=== PATIENT | male | born 1935 | race Caucasian/White ===

== ENCOUNTER 2020-05-30 06:08 | Inpatient (IN) | payer MEDICARE ==
[~2020-05-30] VITALS: Ht 170.2 cm; Wt 70.0 kg
--- NOTE | 2020-05-30 06:18 | NUR ---
MEDICAL CAREGIVER STATES THAT HE STARTED BLEEDING ON TUESDAY. DR CHENG PLACED PACEMAKER
[2020-05-30 07:02] LABS: BASOPHILS % (AUTO) 0.7 % (0-1); EOSINOPHILS # (AUTO) 0.1 X10'3 (0-0.9); EOSINOPHILS % (AUTO) 1.8 % (0-6); HEMATOCRIT 34.2 % (42.0-52.0); HEMOGLOBIN 11.8 g/dl (14.0-17.9); LYMPHOCYTES # (AUTO) 1.2 X10'3 (1.1-4.8); LYMPHOCYTES % (AUTO) 40.8 % (21-51); MEAN CORPUSCULAR HEMOGLOBIN 28.9 PG (27.0-31.0); MEAN CORPUSCULAR HGB CONC 34.5 g/dL (33.0-36.5); MEAN CORPUSCULAR VOLUME 83.9 FL (78-98); MEAN PLATELET VOLUME 7.5 FL (7.4-10.4); MONOCYTES # (AUTO) 0.3 X10'3 (0-0.9); MONOCYTES % (AUTO) 11.3 % (2-12); NEUTROPHILS # (AUTO) 1.3 X10'3 (1.8-7.7); NEUTROPHILS % (AUTO) 45.4 % (42-75); PLATELET COUNT 192 X10'3 (140-440); RED BLOOD COUNT 4.08 X10'6 (4.70-6.10); RED CELL DISTRIBUTION WIDTH 14.5 % (11.5-14.5); WHITE BLOOD COUNT 2.9 X10'3 (4.5-11.0)
[2020-05-30 07:13] LABS: PARTIAL THROMBOPLASTIN TIME 45 SECONDS (22-32)
[2020-05-30 07:18] LABS: ALANINE AMINOTRANSFERASE 12 U/L (12-78); ALBUMIN 3.4 G/DL (3.4-5.0); ALBUMIN/GLOBULIN RATIO 0.9 (1.1-1.5); ALKALINE PHOSPHATASE 94 IU/L (46-116); ANION GAP 9 (8-16); ASPARTATE AMINO TRANSFERASE 6 U/L (10-37); BILIRUBIN,TOTAL 0.7 MG/DL (0.1-1.0); BLOOD UREA NITROGEN 25 MG/DL (7-18); BUN/CREATININE RATIO 18.1 (5.4-32.0); CALCIUM 9.1 MG/DL (8.5-10.1); CHLORIDE 108 MMOL/L (99-107); CREATININE 1.38 MG/DL (0.60-1.10); GLUCOSE 92 MG/DL (70-104); POTASSIUM 5.2 MMOL/L (3.5-5.1); SODIUM 138 MMOL/L (135-145); TOTAL CARBON DIOXIDE 21.3 MMOL/L (24-32); TOTAL PROTEIN 7.2 G/DL (6.4-8.2); eGFR 49 ML/MIN
[2020-05-30 07:59] LABS: TOTAL CELLS COUNTED 100
[2020-05-30 08:28] LABS: PLATELET ESTIMATE NORMAL
--- NOTE | 2020-05-30 10:40 | NUR ---
DR CHENG IN ROOM CLEANING SITE WITH IODINE AND 4X4 GAUZE. DR CHENG WILL PLACE A 4X4 GAUZE AND TEGADERM TO LEFT UPPER CHEST PACEMAKER SITE
--- NOTE | 2020-05-30 10:49 | NUR ---
PER DR CHENG WHO SPOKE TO DR MERCEDES: 1. PATIENT WILL HOLD COUMADIN STARTING TODAY 2. DR MERCEDES WILL ORDER HOME HEALTH 3. PATIENT WILL COME BACK TUESDAY AM TO HAVE HIS PACEMEAKER POCKET REVISED PER DR CHENG: OK TO DISCHARGE HOME
--- NOTE | 2020-05-30 11:27 | NUR ---
REFERRAL HOME HEALTH FORM FILLED OUT AND FAXED TO [facility] WITH THE ASSISTANCE OF MD MERCEDES
[2020-05-30] MEDS ORDERED: SERT-433 PO (13:16)
[2020-05-30] MEDS ORDERED: LEVO125T8 PO (13:16)
[2020-05-30] MEDS ORDERED: WARF2.5T82 PO (13:16)
[2020-05-30] MEDS ORDERED: CARV25TA2 PO (13:16)
[2020-05-30] MEDS ORDERED: magnesium 4gm in 100ml NS 100 ML IV PRN (13:55)
[2020-05-30] MEDS ORDERED: magnesium 2GM in 50ml NS 50 ML IV PRN (13:55)
[2020-05-30] MEDS ORDERED: ondansetron/PF 4mg/2ml inj IV PRN (13:55)
[2020-05-30] MEDS ORDERED: magnesium Cl slow-release 64mg tablet PO PRN (13:55)
[2020-05-30] MEDS ORDERED: morphine 2 MG/ML inj. syringe IV PRN (13:55)
[2020-05-30] MEDS ORDERED: acetaminophen 325mg tablet PO PRN ×2 (13:55)
[2020-05-30] MEDS ORDERED: potassium Cl 40MEQ/1/2NS 520ml 520 ML IV PRN ×2 (13:55)
[2020-05-30] MEDS ORDERED: potassium Cl 20 mEq SR tablet PO PRN ×2 (13:55)
--- NOTE | 2020-05-30 16:18 | NUR ---
REPOSITIONED PT IN BED. NEW BLOOD NOTED ON PT'S PACEMAKER DRESSING. DR FLAKO WEI.
--- NOTE | 2020-05-30 16:19 | NUR ---
DR ARRIOLA PREQUESTS DR. CHENG BE CONSULTED ON PT'S BLEEDING SITE.
--- NOTE | 2020-05-30 16:23 | NUR ---
Dr. Norman notified. States this is an expected occurance, and he is not concerned at this time. Will continue to monitor.
[2020-05-30 18:00] VITALS: BP 196/80
--- NOTE | 2020-05-30 18:30 | NUR ---
Patient in room MED 312. I have received report from ER nurse and had the opportunity to ask questions and assume patient care. Patient is to wear same dressing over pacemaker
[2020-05-30] MEDS: docusate sod 100mg capsule PO SCH (19:55)
[2020-05-30] MEDS: K and/or MAG REPLACEMENT MC SCH (20:00)
[2020-05-30 22:00] VITALS: BP 125/60
--- NOTE | 2020-05-30 23:43 | NUR ---
Patient strikethrough on left pacemaker site is is 75 percent. at 1800 strikethrough was 50%. Patient denies c/o pain or any symptoms. RN will continue to monitor.
[2020-05-31] MEDS: HYDROcodone/acetaminophen 5mg/325mg tablet PO PRN ×2 (00:47→08:15)
--- NOTE | 2020-05-31 00:49 | NUR ---
patient given norco for pain. no new s.s of complications in his dressing. site has not increased in size, or bleeding. RN encouraged patient to not turn on the site or raise arms to aggravate the site. patient aware and understands.
[2020-05-31 02:00] VITALS: BP 132/65
--- NOTE | 2020-05-31 03:26 | NUR ---
assessed pacemaker site and hematoma at site has not grown. Additionally, patient is not complaining of any pain or s.s. patient is resting comfortably and sleeping
[2020-05-31 06:00] VITALS: BP 135/70
[2020-05-31 06:17] LABS: BASOPHILS % (AUTO) 0.7 % (0-1); EOSINOPHILS # (AUTO) 0.1 X10'3 (0-0.9); EOSINOPHILS % (AUTO) 2.2 % (0-6); HEMATOCRIT 35.5 % (42.0-52.0); HEMOGLOBIN 12.2 g/dl (14.0-17.9); LYMPHOCYTES # (AUTO) 1.2 X10'3 (1.1-4.8); LYMPHOCYTES % (AUTO) 38.8 % (21-51); MEAN CORPUSCULAR HEMOGLOBIN 28.9 PG (27.0-31.0); MEAN CORPUSCULAR HGB CONC 34.4 g/dL (33.0-36.5); MEAN PLATELET VOLUME 7.5 FL (7.4-10.4); MONOCYTES # (AUTO) 0.4 X10'3 (0-0.9); MONOCYTES % (AUTO) 12.4 % (2-12); NEUTROPHILS # (AUTO) 1.4 X10'3 (1.8-7.7); NEUTROPHILS % (AUTO) 45.9 % (42-75); PLATELET COUNT 191 X10'3 (140-440); RED BLOOD COUNT 4.22 X10'6 (4.70-6.10); RED CELL DISTRIBUTION WIDTH 14.9 % (11.5-14.5)
--- NOTE | 2020-05-31 06:19 | NUR ---
Problems reprioritized. Patient report given, questions answered & plan of care reviewed with Jimi TELLEZ.
[2020-05-31 06:31] LABS: ALBUMIN 3.3 G/DL (3.4-5.0); ANION GAP 11 (8-16); BLOOD UREA NITROGEN 27 MG/DL (7-18); BUN/CREATININE RATIO 20.1 (5.4-32.0); CALCIUM 8.8 MG/DL (8.5-10.1); CHLORIDE 108 MMOL/L (99-107); CREATININE 1.34 MG/DL (0.60-1.10); GLUCOSE 95 MG/DL (70-104); MAGNESIUM 1.8 MG/DL (1.5-2.4); POTASSIUM 4.9 MMOL/L (3.5-5.1); SODIUM 140 MMOL/L (135-145); TOTAL CARBON DIOXIDE 21.1 MMOL/L (24-32); eGFR 51 ML/MIN
[2020-05-31 06:48] LABS: ANISOCYTOSIS 1+; MICROCYTOSIS 1+; PLATELET ESTIMATE NORMAL; TOTAL CELLS COUNTED 100
[2020-05-31] MEDS: docusate sod 100mg capsule PO SCH ×2 (07:56→19:14)
--- NOTE | 2020-05-31 08:36 | NUR ---
PAGER ID: [phone] MESSAGE: Felipe Chavira, 312, hematoma over pacemaker patient home meds reviewed, is asking if we can restart his coreg, levothyroxine, and Zoloft.
[2020-05-31] MEDS: carVEDilol 12.5mg tablet PO SCH ×2 (10:18→19:29)
[2020-05-31] MEDS: sertraline 50mg tablet PO SCH (10:18)
--- NOTE | 2020-05-31 10:25 | NUR ---
PAGER ID: [phone] MESSAGE: Felipe Bonds, 312, hematoma over pacemaker Dietary is asking if we can change his diet to restrict potassium (difficulty excreting it), and restrict Vitamin K in diet.
[2020-05-31 11:00] VITALS: BP 95/38
[2020-05-31 15:00] VITALS: BP 95/56
[2020-05-31 18:00] VITALS: BP 144/73
--- NOTE | 2020-05-31 18:19 | NUR ---
Carolyne Avalos given SBAR report, EMAR reviewed, Questions answered, plan of care reviewed.
--- NOTE | 2020-05-31 18:36 | NUR ---
Patient in room MED 312. I have received report from Jimi TELLEZ and had the opportunity to ask questions and assume patient care.
[2020-05-31] MEDS: K and/or MAG REPLACEMENT MC SCH (19:30)
[2020-05-31 22:00] VITALS: BP 137/66
--- NOTE | 2020-06-01 01:15 | NUR ---
Spoke to Dr. Riley regarding patient dressing site over pacemaker. RN went into patient room and noticed blood on patient pillow. The breakdown of the hematoma was oozing through the Tegaderm dressing site. MD said to reinforce to dressing. The patient INR is 3.8 and the wbc was 3.0. Rn is to clean surrounding site with iodine and hen reinforce with sterile gauze and a 4x4 gauze. no other orders
[2020-06-01 02:00] VITALS: BP 127/65
--- NOTE | 2020-06-01 02:00 | NUR ---
MD Riley called to come evaluate patients PPM hematoma site due to the dressing being saturated with blood. He examined the site and advised to just reinforce the dressing instead of changing it. He stated he believes it is old blood.
[2020-06-01 06:00] VITALS: BP 123/62
--- NOTE | 2020-06-01 06:21 | NUR ---
Problems reprioritized. Patient report given, questions answered & plan of care reviewed with Angelika TELLEZ.
[2020-06-01 06:27] LABS: HEMOGLOBIN 11.4 g/dl (14.0-17.9); MEAN PLATELET VOLUME 7.7 FL (7.4-10.4); MONOCYTES # (AUTO) 0.3 X10'3 (0-0.9)
[2020-06-01 06:29] LABS: ALBUMIN 3.2 G/DL (3.4-5.0); ANION GAP 8 (8-16); BLOOD UREA NITROGEN 28 MG/DL (7-18); BUN/CREATININE RATIO 20.4 (5.4-32.0); CALCIUM 8.7 MG/DL (8.5-10.1); CHLORIDE 107 MMOL/L (99-107); CREATININE 1.37 MG/DL (0.60-1.10); GLUCOSE 103 MG/DL (70-104); MAGNESIUM 1.8 MG/DL (1.5-2.4); POTASSIUM 4.8 MMOL/L (3.5-5.1); SODIUM 137 MMOL/L (135-145); TOTAL CARBON DIOXIDE 22.4 MMOL/L (24-32); eGFR 50 ML/MIN
[2020-06-01 06:31] LABS: BASOPHILS % (AUTO) 0.4 % (0-1); EOSINOPHILS % (AUTO) 1.6 % (0-6); LYMPHOCYTES # (AUTO) 1.2 X10'3 (1.1-4.8); LYMPHOCYTES % (AUTO) 38.6 % (21-51); MEAN CORPUSCULAR HEMOGLOBIN 28.9 PG (27.0-31.0); MEAN CORPUSCULAR HGB CONC 34.6 g/dL (33.0-36.5); MEAN CORPUSCULAR VOLUME 83.5 FL (78-98); MONOCYTES % (AUTO) 10.9 % (2-12); NEUTROPHILS # (AUTO) 1.5 X10'3 (1.8-7.7); NEUTROPHILS % (AUTO) 48.5 % (42-75); PLATELET COUNT 182 X10'3 (140-440); RED BLOOD COUNT 3.95 X10'6 (4.70-6.10); RED CELL DISTRIBUTION WIDTH 14.8 % (11.5-14.5)
[2020-06-01] MEDS: K and/or MAG REPLACEMENT MC SCH ×2 (08:00→20:00)
[2020-06-01] MEDS: sertraline 50mg tablet PO SCH (10:55)
[2020-06-01] MEDS: carVEDilol 12.5mg tablet PO SCH ×2 (10:55→21:28)
[2020-06-01] MEDS: levoTHYROXINE 125mcg tablet PO SCH (10:55)
[2020-06-01] MEDS: docusate sod 100mg capsule PO SCH ×2 (10:55→20:00)
[2020-06-01 11:00] VITALS: BP 119/64
[2020-06-01] MEDS ORDERED: phytonadione inj. 1 MG in normal saline 100ml IV soln 100 ML IV ONE (11:15)
[2020-06-01 15:00] VITALS: BP 141/73
--- NOTE | 2020-06-01 18:30 | NUR ---
Patient in room MED 312. I have received report from OSMIN and had the opportunity to ask questions and assume patient care. ASSUMED CARE OF PT WITH RN STUDENT DENNISE Perdue AT THE BEDSIDE.
[2020-06-01 19:00] VITALS: BP 100/53
[2020-06-01 20:30] VITALS: BP 132/55
--- NOTE | 2020-06-02 03:00 | NUR ---
Student documentation: I have reviewed and agree with all interventions, assessments performed and documented by DENNISE .Student Medication Administration: For this medication-pass time frame, all medication were reviewed, dispensed, administered and documented per hospital policy by DENNISE.
[2020-06-02 03:02] VITALS: BP 97/49
--- NOTE | 2020-06-02 06:29 | NUR ---
Problems reprioritized. Patient report given, questions answered & plan of care reviewed with ROJELIO.
[2020-06-02 06:39] VITALS: BP 114/62
[2020-06-02 07:05] LABS: BASOPHILS % (AUTO) 0.6 % (0-1); EOSINOPHILS # (AUTO) 0.1 X10'3 (0-0.9); EOSINOPHILS % (AUTO) 1.9 % (0-6); HEMATOCRIT 33.7 % (42.0-52.0); HEMOGLOBIN 11.5 g/dl (14.0-17.9); LYMPHOCYTES # (AUTO) 1.3 X10'3 (1.1-4.8); MEAN CORPUSCULAR HEMOGLOBIN 28.8 PG (27.0-31.0); MEAN CORPUSCULAR VOLUME 84.7 FL (78-98); MONOCYTES # (AUTO) 0.4 X10'3 (0-0.9); NEUTROPHILS # (AUTO) 1.4 X10'3 (1.8-7.7); NEUTROPHILS % (AUTO) 45.5 % (42-75); PLATELET COUNT 178 X10'3 (140-440); RED BLOOD COUNT 3.98 X10'6 (4.70-6.10); RED CELL DISTRIBUTION WIDTH 14.6 % (11.5-14.5); WHITE BLOOD COUNT 3.2 X10'3 (4.5-11.0)
[2020-06-02 07:44] LABS: ALBUMIN 3.1 G/DL (3.4-5.0); ANION GAP 9 (8-16); BLOOD UREA NITROGEN 26 MG/DL (7-18); BUN/CREATININE RATIO 19.4 (5.4-32.0); CALCIUM 8.5 MG/DL (8.5-10.1); CHLORIDE 107 MMOL/L (99-107); CREATININE 1.34 MG/DL (0.60-1.10); GLUCOSE 96 MG/DL (70-104); MAGNESIUM 1.7 MG/DL (1.5-2.4); POTASSIUM 4.9 MMOL/L (3.5-5.1); SODIUM 138 MMOL/L (135-145); TOTAL CARBON DIOXIDE 22.3 MMOL/L (24-32); eGFR 51 ML/MIN
[2020-06-02] MEDS: K and/or MAG REPLACEMENT MC SCH ×2 (08:00→20:00)
[2020-06-02] MEDS ORDERED: LIDOcaine 1% W/epiNEPHrine 1:100,000 20ml vial ONE (09:05)
[2020-06-02] MEDS ORDERED: ceFAZolin 1000mg inj ONE (09:05)
[2020-06-02] MEDS ORDERED: fentaNYL/PF 50MCG/1 ML 2ML syringe ONE (09:05)
[2020-06-02] MEDS ORDERED: midazolam 1 mg/ML 2ml injection ONE ×2 (09:05→10:27)
[2020-06-02] MEDS ORDERED: vancomycin 1,000mg inj ONE (09:43)
[2020-06-02] MEDS ORDERED: Thrombin (Bovine) 5,000 unit vial TP ONE (10:19)
[2020-06-02] MEDS ORDERED: gelatin sponge, absorbable (Gelfoam 100) sponge TP ONE (10:21)
[2020-06-02] MEDS ORDERED: ceFAZolin 2gm in dextrose, iso 50 ML IV ONE (10:26)
[2020-06-02 12:03] VITALS: BP 113/60
[2020-06-02] MEDS: sertraline 50mg tablet PO SCH (13:07)
[2020-06-02] MEDS: docusate sod 100mg capsule PO SCH ×2 (13:07→21:21)
[2020-06-02] MEDS: carVEDilol 12.5mg tablet PO SCH ×2 (13:07→21:21)
[2020-06-02] MEDS: levoTHYROXINE 125mcg tablet PO SCH ×2 (13:07→21:21)
[2020-06-02 16:07] VITALS: BP 124/55
[2020-06-02 22:00] VITALS: BP 109/50
[2020-06-03] VITALS (9 sets, daily range): BP systolic 95–171; BP diastolic 36–85
--- NOTE | 2020-06-03 05:40 | NUR ---
patient is a post CVA with hemiparesis, no acute events overnight, at bedside, his output and input has been document.
--- NOTE | 2020-06-03 07:10 | NUR ---
Patient in room MED 312. I have received report from Mode TELLEZ and had the opportunity to ask questions and assume patient care.
[2020-06-03 07:27] LABS: BASOPHILS % (AUTO) 0.4 % (0-1); EOSINOPHILS % (AUTO) 1.5 % (0-6); HEMATOCRIT 32.8 % (42.0-52.0); HEMOGLOBIN 11.3 g/dl (14.0-17.9); LYMPHOCYTES # (AUTO) 1.1 X10'3 (1.1-4.8); LYMPHOCYTES % (AUTO) 37.8 % (21-51); MEAN CORPUSCULAR HGB CONC 34.3 g/dL (33.0-36.5); MEAN CORPUSCULAR VOLUME 84.3 FL (78-98); MEAN PLATELET VOLUME 7.9 FL (7.4-10.4); MONOCYTES # (AUTO) 0.3 X10'3 (0-0.9); MONOCYTES % (AUTO) 11.6 % (2-12); NEUTROPHILS # (AUTO) 1.4 X10'3 (1.8-7.7); NEUTROPHILS % (AUTO) 48.7 % (42-75); PLATELET COUNT 171 X10'3 (140-440); RED BLOOD COUNT 3.89 X10'6 (4.70-6.10); RED CELL DISTRIBUTION WIDTH 14.8 % (11.5-14.5); WHITE BLOOD COUNT 2.9 X10'3 (4.5-11.0)
[2020-06-03] MEDS: K and/or MAG REPLACEMENT MC SCH ×2 (08:00→19:05)
[2020-06-03 08:12] LABS: ALBUMIN 3.1 G/DL (3.4-5.0); ANION GAP 8 (8-16); BLOOD UREA NITROGEN 27 MG/DL (7-18); BUN/CREATININE RATIO 20.5 (5.4-32.0); CALCIUM 8.7 MG/DL (8.5-10.1); CHLORIDE 107 MMOL/L (99-107); CREATININE 1.32 MG/DL (0.60-1.10); GLUCOSE 95 MG/DL (70-104); MAGNESIUM 1.8 MG/DL (1.5-2.4); POTASSIUM 4.9 MMOL/L (3.5-5.1); SODIUM 137 MMOL/L (135-145); TOTAL CARBON DIOXIDE 22.5 MMOL/L (24-32); eGFR 52 ML/MIN
[2020-06-03] MEDS: docusate sod 100mg capsule PO SCH ×2 (08:41→19:47)
[2020-06-03] MEDS: sertraline 50mg tablet PO SCH (08:41)
[2020-06-03] MEDS: clindamycin 600mg/D5W 50ml 50 ML IV SCH ×2 (08:41→17:47)
[2020-06-03] MEDS: carVEDilol 12.5mg tablet PO SCH ×2 (08:41→19:50)
[2020-06-03 09:25] LABS: TOTAL CELLS COUNTED 100
[2020-06-03 09:31] LABS: PLATELET ESTIMATE NORMAL
--- NOTE | 2020-06-03 11:10 | NUR ---
Initial: Pt admit for hematoma at pacemaker site, s/p evacuation of hematoma 05/05. Pt with CKD III per MD note, on a renal diet documented with average 75% PO intake meeting estimated nutrient needs. LBM 05/29, receiving routine bowel care. D/w dietary to send prune juice with next meal for bowel regularity. Will continue to follow and monitor need for further nutrition intervention. Recommendations: 1) Advance to regular diet as medically indicated given geriatric age and electrolytes WNL 2) Routine bowel care 3) Scaled weights per rx Addendum: 06/03/20 at [address] Amended: Links added.
--- NOTE | 2020-06-03 12:36 | NUR ---
Rm 312, Cammie. Pt and c/o new onset pain in r arm concerned about DVT as his INR was 1.5 yesterday. Also would like to talk about Harpreet with , Thanks. Geena [phone]
--- NOTE | 2020-06-03 12:36 | NUR ---
Patient c/o new onset pain in the right arm, concerned about DVT as INR was 1.5 yesterday. Upper Arm circumference measured at 36cm, arm marked with pen. Also patient and would like to talk to the MD regarding Xarelto because they do not want to take that medication and would like to continue taking the Warfarin.
--- NOTE | 2020-06-03 13:50 | NUR ---
Patient resting in bed, but continue to complain of rt arm pain/tenderness. at bedside and extremely concerned about arm and new medication xarelto. MD notified, nurse awaiting doctor to come by to assess and speak with patient and spouse. Arm marked and measured for circumference. Bed locked in lowest position, call light within reach, patient and instructed to call for assistance, verbalized understanding.
--- NOTE | 2020-06-03 15:05 | NUR ---
Patient family educated on only one visitor in the hospital during their whole hospital stay and the family member stated "I'm only here at the bedside while his goes and gets her second dose of her vaccine to stop a sentinel event from happening from an unresponsive doctor". I informed the family that the doctor was aware of their concerns during the hospital stay. Family educated on hospital policy of only having one visitor during entire hospital stay.
--- NOTE | 2020-06-03 15:25 | NUR ---
Family out of room to speak with charge nurse to alert there was a change with patient. Charge nurse notified primary nurse immediately. At bedside performed assessment, patient with slurred and incomprehensible speech. Vitals taken 144/59, 60, 97.8, 100% RA. Charge nurse notified to call stroke alert. Stroke alert called at 1530. at approx 1535 patient transported to [facility].
--- NOTE | 2020-06-03 15:29 | NUR ---
Paged Dr. Edwards regarding stroke alert. PAGER ID: [phone] MESSAGE: 312. Felipe Bonds. Patient unable to speak words. Would you like me call a stroke alert? Thank you. Preethi quiroz [phone] Addendum: 06/03/20 at 1530 by Preethi Keith RN Dr. Edwards called back and said to take patient down for head CT for stroke alert.
[2020-06-03] MEDS ORDERED: enoxaparin 100mg/ml syringe SUBCUT ONE (15:30)
--- NOTE | 2020-06-03 15:50 | NUR ---
Arrived back on unit, stoke nurse at bedside for assessment and for neuro telemedicine. VSS 153/71 80, 100% on RA.
--- NOTE | 2020-06-03 15:55 | NUR ---
Patient has pre existing left side weakness of arm and leg with sensation intact and he also has left sided visual field cut from previous cva.
--- NOTE | 2020-06-03 15:55 | NUR ---
Arrived for level 1 stroke alert and set up the SOC cart for neurology to see him. Patient is having issues with speech and following commands.
[2020-06-03] MEDS ORDERED: aspirin 325mg tablet PO ONE (16:05)
[2020-06-03] MEDS ORDERED: atorvastatin 20mg tablet PO SCH ×2 (16:05→16:30)
[2020-06-03] MEDS ORDERED: iohexol 350MG/ML 100ml bottle IV ONE (16:33)
--- NOTE | 2020-06-03 16:34 | NUR ---
Patient's gave patient a sip of water through a straw at the bedside and the patient was able to swallow with no problem.
[2020-06-03 16:44] LABS: CHOL/HDL RATIO 5.3 (0.00-4.99); CHOLESTEROL 143 MG/DL (0-200); HDL CHOLESTEROL 27 MG/DL (35-60); LDL CHOLESTEROL 75 MG/DL (50-100); TRIGLYCERIDES 202 MG/DL (20-135)
[2020-06-03] MEDS ORDERED: atorvastatin 20mg tablet PO ONE (16:45)
--- NOTE | 2020-06-03 16:45 | NUR ---
Got orders from Dr. Edwards to hold the Lovenox until the CTA head and neck is done and reported, he also told me to give higher dose of Lipitor now and the asa that he ordered. Swallow was done by nurse at bedside.
--- NOTE | 2020-06-03 16:48 | NUR ---
Patient transported back to [facility] for CTA, with transport and stroke nurse.
[2020-06-03 16:50] LABS: HEMOGLOBIN A1C 4.9 % (4.5-6.2)
--- NOTE | 2020-06-03 17:12 | NUR ---
patient back on unit from [facility]
--- NOTE | 2020-06-03 17:24 | NUR ---
Paged vascular that patient was back from CAT scan.
--- NOTE | 2020-06-03 17:40 | NUR ---
I called Dr. Edwards and went over the CTA head and neck results, he said to give the Lovenox one time dose that was already ordered by him. I reported that he is better neurologically and that second neurology eval was done.
--- NOTE | 2020-06-03 17:45 | NUR ---
His left arm is contracted but he is able to feel all sensation on the left side arm/leg that is affected by previous stroke. He is able to hold the left arm up but not the left leg. Addendum: 06/03/20 at 1802 by Ilene Soto RN Amended: Links added.
--- NOTE | 2020-06-03 17:48 | NUR ---
Paged vascular again regarding orders and that patient was back from CAT scan.
[2020-06-03] MEDS ORDERED: rivaroxaban 20mg tablet PO SCH (18:00)
--- NOTE | 2020-06-03 18:47 | NUR ---
PAGER ID: [phone] MESSAGE: 312 pt Cammie. Patient c/o sensation impairment around mouth and right arm soreness and concerned he is starting to search for words again. ASA, Lovenox, and Coumadin already given. Want any other orders? - [phone] Addendum: 06/03/20 at 1907 by Bambi Montano RN Dr. Edwards called back and advised to continue to monitor closely and consult neurologist if symptoms worsen. MRI planned for tomorrow. No new orders.
[2020-06-03] MEDS ORDERED: warfarin 5mg tablet PO ONE (21:00)
[2020-06-04 02:00] VITALS: BP 115/58
[2020-06-04 06:00] VITALS: BP 146/64
[2020-06-04 06:21] LABS: BASOPHILS % (AUTO) 0.2 % (0-1); EOSINOPHILS % (AUTO) 1.2 % (0-6); HEMATOCRIT 34.7 % (42.0-52.0); HEMOGLOBIN 11.6 g/dl (14.0-17.9); LYMPHOCYTES # (AUTO) 1.1 X10'3 (1.1-4.8); LYMPHOCYTES % (AUTO) 32.3 % (21-51); MEAN CORPUSCULAR HEMOGLOBIN 28.9 PG (27.0-31.0); MEAN CORPUSCULAR HGB CONC 33.4 g/dL (33.0-36.5); MEAN CORPUSCULAR VOLUME 86.7 FL (78-98); MEAN PLATELET VOLUME 8.1 FL (7.4-10.4); MONOCYTES # (AUTO) 0.5 X10'3 (0-0.9); MONOCYTES % (AUTO) 15.2 % (2-12); NEUTROPHILS # (AUTO) 1.8 X10'3 (1.8-7.7); NEUTROPHILS % (AUTO) 51.1 % (42-75); PLATELET COUNT 147 X10'3 (140-440); RED BLOOD COUNT 4.01 X10'6 (4.70-6.10); WHITE BLOOD COUNT 3.5 X10'3 (4.5-11.0)
[2020-06-04] MEDS: enoxaparin 40mg/0.4ml syringe SQ SCH ×2 (08:00→20:09)
[2020-06-04] MEDS: K and/or MAG REPLACEMENT MC SCH ×2 (08:00→19:57)
[2020-06-04] MEDS: enoxaparin 30mg/0.3ml syringe SUBCUT SCH ×2 (08:00→20:07)
[2020-06-04 08:17] LABS: ALBUMIN 3.1 G/DL (3.4-5.0); ANION GAP 10 (8-16); BLOOD UREA NITROGEN 24 MG/DL (7-18); BUN/CREATININE RATIO 18.9 (5.4-32.0); CALCIUM 8.5 MG/DL (8.5-10.1); CHLORIDE 105 MMOL/L (99-107); CREATININE 1.27 MG/DL (0.60-1.10); GLUCOSE 100 MG/DL (70-104); MAGNESIUM 1.7 MG/DL (1.5-2.4); SODIUM 135 MMOL/L (135-145); TOTAL CARBON DIOXIDE 19.8 MMOL/L (24-32); eGFR 54 ML/MIN
[2020-06-04] MEDS: aspirin 81mg tablet.DR PO SCH (08:24)
[2020-06-04] MEDS: sertraline 50mg tablet PO SCH (08:24)
[2020-06-04] MEDS: docusate sod 100mg capsule PO SCH ×2 (08:25→20:06)
[2020-06-04] MEDS: levoTHYROXINE 125mcg tablet PO SCH (08:25)
[2020-06-04] MEDS: carVEDilol 12.5mg tablet PO SCH ×2 (08:25→20:07)
[2020-06-04] MEDS: atorvastatin 20mg tablet PO SCH (08:25)
[2020-06-04 11:00] VITALS: BP 123/53
[2020-06-04 15:00] VITALS: BP 113/46
[2020-06-04 18:00] VITALS: BP 117/57
[2020-06-04] MEDS ORDERED: warfarin 5mg tablet PO ONE (21:00)
[2020-06-04 22:00] VITALS: BP 116/49
[2020-06-05 02:00] VITALS: BP 112/58
--- NOTE | 2020-06-05 06:20 | NUR ---
Patient in room MED 312. I have received report from GEOFF Jacobson and had the opportunity to ask questions and assume patient care.
[2020-06-05 06:26] LABS: BASOPHILS % (AUTO) 0.4 % (0-1); EOSINOPHILS % (AUTO) 1.1 % (0-6); HEMATOCRIT 32.6 % (42.0-52.0); HEMOGLOBIN 11.1 g/dl (14.0-17.9); LYMPHOCYTES # (AUTO) 1.1 X10'3 (1.1-4.8); LYMPHOCYTES % (AUTO) 32.7 % (21-51); MEAN CORPUSCULAR HEMOGLOBIN 28.8 PG (27.0-31.0); MEAN CORPUSCULAR HGB CONC 34.1 g/dL (33.0-36.5); MEAN CORPUSCULAR VOLUME 84.5 FL (78-98); MEAN PLATELET VOLUME 8.1 FL (7.4-10.4); MONOCYTES # (AUTO) 0.5 X10'3 (0-0.9); MONOCYTES % (AUTO) 15.1 % (2-12); NEUTROPHILS # (AUTO) 1.7 X10'3 (1.8-7.7); NEUTROPHILS % (AUTO) 50.7 % (42-75); PLATELET COUNT 150 X10'3 (140-440); RED BLOOD COUNT 3.85 X10'6 (4.70-6.10); RED CELL DISTRIBUTION WIDTH 14.9 % (11.5-14.5); WHITE BLOOD COUNT 3.3 X10'3 (4.5-11.0)
[2020-06-05 06:30] VITALS: BP 111/63
[2020-06-05 06:55] LABS: ANION GAP 10 (8-16); BLOOD UREA NITROGEN 28 MG/DL (7-18); BUN/CREATININE RATIO 17.9 (5.4-32.0); CALCIUM 8.6 MG/DL (8.5-10.1); CHLORIDE 106 MMOL/L (99-107); CREATININE 1.56 MG/DL (0.60-1.10); GLUCOSE 97 MG/DL (70-104); MAGNESIUM 1.8 MG/DL (1.5-2.4); POTASSIUM 4.9 MMOL/L (3.5-5.1); SODIUM 137 MMOL/L (135-145); eGFR 43 ML/MIN
[2020-06-05] MEDS: K and/or MAG REPLACEMENT MC SCH ×2 (08:00→19:43)
[2020-06-05] MEDS: levoTHYROXINE 125mcg tablet PO SCH (08:21)
[2020-06-05] MEDS: aspirin 81mg tablet.DR PO SCH (08:21)
[2020-06-05] MEDS: docusate sod 100mg capsule PO SCH ×2 (08:22→19:41)
[2020-06-05] MEDS: atorvastatin 20mg tablet PO SCH (08:22)
[2020-06-05] MEDS: sertraline 50mg tablet PO SCH (08:22)
[2020-06-05] MEDS: enoxaparin 30mg/0.3ml syringe SUBCUT SCH ×2 (08:23→19:40)
[2020-06-05] MEDS: enoxaparin 40mg/0.4ml syringe SQ SCH ×2 (08:23→19:41)
[2020-06-05] MEDS: carVEDilol 12.5mg tablet PO SCH ×2 (08:25→19:41)
[2020-06-05 11:00] VITALS: BP 106/50
[2020-06-05 15:00] VITALS: BP 138/59
--- NOTE | 2020-06-05 16:37 | NUR ---
PAGER ID: [phone] MESSAGE: Felipe Bonds Room 312. Can we remove stroke pathway documentation - all is negative. Thanks, Melanie [phone]
[2020-06-05 18:00] VITALS: BP 152/71
--- NOTE | 2020-06-05 18:41 | NUR ---
Problems reprioritized. Patient report given, questions answered & plan of care reviewed with GEOFF Waldrop.
[2020-06-05] MEDS ORDERED: warfarin 5mg tablet PO ONE (21:00)
[2020-06-05 22:00] VITALS: BP 115/38
[2020-06-06 02:00] VITALS: BP 130/82
[2020-06-06 06:00] VITALS: BP 122/60
--- NOTE | 2020-06-06 06:20 | NUR ---
Patient in room MED 312. I have received report from GEOFF Waldrop and had the opportunity to ask questions and assume patient care.
[2020-06-06 07:34] LABS: BASOPHILS % (AUTO) 0.5 % (0-1); EOSINOPHILS % (AUTO) 0.7 % (0-6); HEMOGLOBIN 10.5 g/dl (14.0-17.9); MEAN CORPUSCULAR HEMOGLOBIN 28.9 PG (27.0-31.0); MEAN CORPUSCULAR HGB CONC 33.9 g/dL (33.0-36.5); MEAN CORPUSCULAR VOLUME 85.3 FL (78-98); MEAN PLATELET VOLUME 8.4 FL (7.4-10.4); MONOCYTES # (AUTO) 0.5 X10'3 (0-0.9); MONOCYTES % (AUTO) 14.5 % (2-12); NEUTROPHILS # (AUTO) 1.9 X10'3 (1.8-7.7); NEUTROPHILS % (AUTO) 55.3 % (42-75); PLATELET COUNT 147 X10'3 (140-440); RED BLOOD COUNT 3.64 X10'6 (4.70-6.10); RED CELL DISTRIBUTION WIDTH 14.5 % (11.5-14.5); WHITE BLOOD COUNT 3.5 X10'3 (4.5-11.0)
[2020-06-06] MEDS: carVEDilol 12.5mg tablet PO SCH ×2 (07:53→20:25)
[2020-06-06] MEDS: docusate sod 100mg capsule PO SCH ×2 (07:54→20:25)
[2020-06-06] MEDS: levoTHYROXINE 125mcg tablet PO SCH (07:54)
[2020-06-06] MEDS: atorvastatin 20mg tablet PO SCH (07:54)
[2020-06-06] MEDS: sertraline 50mg tablet PO SCH (07:54)
[2020-06-06] MEDS: aspirin 81mg tablet.DR PO SCH (07:55)
[2020-06-06] MEDS: K and/or MAG REPLACEMENT MC SCH ×2 (08:00→20:00)
[2020-06-06] MEDS: enoxaparin 40mg/0.4ml syringe SQ SCH (08:00)
[2020-06-06] MEDS: enoxaparin 30mg/0.3ml syringe SUBCUT SCH (08:00)
[2020-06-06 08:09] LABS: ANION GAP 12 (8-16); BLOOD UREA NITROGEN 33 MG/DL (7-18); BUN/CREATININE RATIO 23.4 (5.4-32.0); CALCIUM 8.4 MG/DL (8.5-10.1); CHLORIDE 106 MMOL/L (99-107); CREATININE 1.41 MG/DL (0.60-1.10); GLUCOSE 98 MG/DL (70-104); MAGNESIUM 1.9 MG/DL (1.5-2.4); POTASSIUM 4.9 MMOL/L (3.5-5.1); SODIUM 138 MMOL/L (135-145); TOTAL CARBON DIOXIDE 19.8 MMOL/L (24-32); eGFR 48 ML/MIN
[2020-06-06 11:00] VITALS: BP 101/47
--- NOTE | 2020-06-06 12:19 | NUR ---
PAGER ID: [phone] MESSAGE: Felipe Bonds Room 312. INR 2.2. do you still want lovenox given. Pt received 1 dose of coumadin last night. Please clarify, Melanie [phone]
[2020-06-06 15:00] VITALS: BP 102/48
--- NOTE | 2020-06-06 18:15 | NUR ---
Problems reprioritized. Patient report given, questions answered & plan of care reviewed with GEOFF Waldrop.
[2020-06-06] MEDS ORDERED: warfarin 3mg tablet PO ONE (21:00)
[2020-06-06 21:12] VITALS: BP 112/68
[2020-06-06 22:00] VITALS: BP 113/39
[2020-06-06] MEDS: HYDROcodone/acetaminophen 5mg/325mg tablet PO PRN (23:06)
[2020-06-07 02:00] VITALS: BP 111/42
[2020-06-07 06:00] VITALS: BP 118/57
[2020-06-07 07:05] LABS: BASOPHILS % (AUTO) 0.3 % (0-1); EOSINOPHILS % (AUTO) 0.8 % (0-6); HEMATOCRIT 28.2 % (42.0-52.0); HEMOGLOBIN 9.7 g/dl (14.0-17.9); LYMPHOCYTES # (AUTO) 0.9 X10'3 (1.1-4.8); LYMPHOCYTES % (AUTO) 27.1 % (21-51); MEAN CORPUSCULAR HEMOGLOBIN 28.7 PG (27.0-31.0); MEAN CORPUSCULAR HGB CONC 34.3 g/dL (33.0-36.5); MEAN CORPUSCULAR VOLUME 83.5 FL (78-98); MEAN PLATELET VOLUME 8.4 FL (7.4-10.4); MONOCYTES # (AUTO) 0.5 X10'3 (0-0.9); NEUTROPHILS # (AUTO) 1.9 X10'3 (1.8-7.7); NEUTROPHILS % (AUTO) 56.8 % (42-75); PLATELET COUNT 141 X10'3 (140-440); RED BLOOD COUNT 3.38 X10'6 (4.70-6.10); RED CELL DISTRIBUTION WIDTH 14.4 % (11.5-14.5); WHITE BLOOD COUNT 3.4 X10'3 (4.5-11.0)
[2020-06-07 07:27] LABS: ALBUMIN 2.8 G/DL (3.4-5.0); ANION GAP 11 (8-16); BLOOD UREA NITROGEN 36 MG/DL (7-18); BUN/CREATININE RATIO 24.8 (5.4-32.0); CALCIUM 8.6 MG/DL (8.5-10.1); CHLORIDE 105 MMOL/L (99-107); CREATININE 1.45 MG/DL (0.60-1.10); GLUCOSE 96 MG/DL (70-104); POTASSIUM 4.8 MMOL/L (3.5-5.1); SODIUM 137 MMOL/L (135-145); TOTAL CARBON DIOXIDE 21.1 MMOL/L (24-32); eGFR 46 ML/MIN
[2020-06-07] MEDS: K and/or MAG REPLACEMENT MC SCH ×2 (08:00→20:00)
[2020-06-07 08:03] LABS: ANISOCYTOSIS 1+; MICROCYTOSIS 1+; PLATELET ESTIMATE DECREASED; TOTAL CELLS COUNTED 100
[2020-06-07] MEDS: levoTHYROXINE 125mcg tablet PO SCH (08:10)
[2020-06-07] MEDS: docusate sod 100mg capsule PO SCH ×2 (08:11→20:41)
[2020-06-07] MEDS: sertraline 50mg tablet PO SCH (08:11)
[2020-06-07] MEDS: carVEDilol 12.5mg tablet PO SCH ×2 (08:12→20:41)
[2020-06-07] MEDS: atorvastatin 20mg tablet PO SCH (08:12)
[2020-06-07] MEDS: HYDROcodone/acetaminophen 5mg/325mg tablet PO PRN (08:14)
[2020-06-07] MEDS: aspirin 81mg tablet.DR PO SCH (08:17)
--- NOTE | 2020-06-07 09:49 | NUR ---
Dr. Looney at bedside with patient and nurse. New order a one time dose of prednisone 40mg IV bow. Will continue to monitor.
[2020-06-07] MEDS ORDERED: predniSONE 20 mg tablet PO ONE (09:50)
[2020-06-07 11:11] VITALS: BP 123/69
[2020-06-07 15:39] VITALS: BP 111/46
[2020-06-07 18:00] VITALS: BP 134/59
--- NOTE | 2020-06-07 18:25 | NUR ---
Patient in room MED 312. I have received report from Adam TELLEZ and had the opportunity to ask questions and assume patient care.
[2020-06-07] MEDS ORDERED: warfarin 1mg tablet PO ONE (21:00)
[2020-06-07 22:00] VITALS: BP 120/59
[2020-06-08 02:00] VITALS: BP 129/56
--- NOTE | 2020-06-08 06:37 | NUR ---
PAGER ID: [phone] MESSAGE: room 3012 (mr. islva) inr is 4.0 thank you Ayde ext [phone]
[2020-06-08 06:39] LABS: ALBUMIN 2.8 G/DL (3.4-5.0); ANION GAP 12 (8-16); BLOOD UREA NITROGEN 41 MG/DL (7-18); BUN/CREATININE RATIO 29.3 (5.4-32.0); CALCIUM 8.5 MG/DL (8.5-10.1); CHLORIDE 105 MMOL/L (99-107); GLUCOSE 119 MG/DL (70-104); POTASSIUM 4.9 MMOL/L (3.5-5.1); SODIUM 136 MMOL/L (135-145); TOTAL CARBON DIOXIDE 18.7 MMOL/L (24-32); eGFR 48 ML/MIN
--- NOTE | 2020-06-08 06:43 | NUR ---
PAGER ID: [phone] MESSAGE: rm 312 mr silva inr is 4.0 thank you Ayde ext [phone]
[2020-06-08 06:45] LABS: BASOPHILS % (AUTO) 0.1 % (0-1); EOSINOPHILS % (AUTO) 0.1 % (0-6); HEMATOCRIT 28.2 % (42.0-52.0); HEMOGLOBIN 9.7 g/dl (14.0-17.9); LYMPHOCYTES # (AUTO) 0.6 X10'3 (1.1-4.8); LYMPHOCYTES % (AUTO) 15.8 % (21-51); MEAN CORPUSCULAR HEMOGLOBIN 28.8 PG (27.0-31.0); MEAN CORPUSCULAR HGB CONC 34.3 g/dL (33.0-36.5); MEAN PLATELET VOLUME 8.6 FL (7.4-10.4); MONOCYTES # (AUTO) 0.5 X10'3 (0-0.9); MONOCYTES % (AUTO) 11.6 % (2-12); NEUTROPHILS # (AUTO) 2.9 X10'3 (1.8-7.7); NEUTROPHILS % (AUTO) 72.4 % (42-75); PLATELET COUNT 146 X10'3 (140-440); RED BLOOD COUNT 3.35 X10'6 (4.70-6.10); RED CELL DISTRIBUTION WIDTH 14.3 % (11.5-14.5)
[2020-06-08 07:40] VITALS: BP 121/62
[2020-06-08] MEDS: atorvastatin 20mg tablet PO SCH (08:00)
[2020-06-08] MEDS: docusate sod 100mg capsule PO SCH ×2 (08:00→20:53)
[2020-06-08] MEDS: K and/or MAG REPLACEMENT MC SCH ×2 (08:00→20:00)
[2020-06-08] MEDS: aspirin 81mg tablet.DR PO SCH (08:13)
[2020-06-08] MEDS: carVEDilol 12.5mg tablet PO SCH ×2 (08:14→20:53)
[2020-06-08] MEDS: sertraline 50mg tablet PO SCH (08:14)
[2020-06-08] MEDS: levoTHYROXINE 125mcg tablet PO SCH (08:14)
--- NOTE | 2020-06-08 09:22 | NUR ---
PAGER ID: [phone] MESSAGE: rm 312 mr silva is complaining of constipation no bowel movement for 6 days . also I texted earlier about his inr 4.0 thank you Ayde ext [phone]
[2020-06-08] MEDS ORDERED: bisacodyl 10mg suppository rectal RC STA (11:12)
[2020-06-08 11:20] VITALS: BP 120/61
--- NOTE | 2020-06-08 13:23 | NUR ---
PAGER ID: [phone] MESSAGE: 312 mr silva, the senior credit officer called and asked if you could place pt on a regular diet from renal since his intake has varied so that the patient can consume more nutrition /calories. thank you ext [phone] dennys
--- NOTE | 2020-06-08 14:50 | NUR ---
Reassessment: Pt PO declined to ~25-50% avg renal diet fluctuating partially meeting needs. BMx1 today following prior 4 days constipation refusing colace among other meds today. Prior constipation likely impacting PO hx. Per dietary pt reports is not on renal diet though is diet order; noted pt on renal diet w/ CKD III hx. ARIEL d/w RN regarding regular diet given declining PO hx and age if MD agreeable. Will continue to monitor for additional protein/kcal needs. Recommendations: 1) Advance to regular diet as medically indicated given geriatric age and electrolytes WNL; encourage PO 2) Routine bowel care 3) Scaled weight this admit Addendum: 06/08/20 at [address] Amended: Links added.
[2020-06-08 16:05] VITALS: BP 141/57
--- NOTE | 2020-06-08 17:26 | NUR ---
End of shift rounds completed. pt in room with at bedside. no c/o pain no distress. pt c/o constipation and was given a suppository with effective results. inr elevated and coumadin on hold no bleeding noted. pt for possible d/c tomorrow to rehab . call quiroz in reach will monitor
[2020-06-08 18:00] VITALS: BP 138/66
[2020-06-08 22:00] VITALS: BP 128/60
[2020-06-09] MEDS: HYDROcodone/acetaminophen 5mg/325mg tablet PO PRN
[2020-06-09 02:00] VITALS: BP 134/62
[2020-06-09 06:01] LABS: BASOPHILS % (AUTO) 0.4 % (0-1); EOSINOPHILS % (AUTO) 0.9 % (0-6); HEMATOCRIT 29.2 % (42.0-52.0); HEMOGLOBIN 9.9 g/dl (14.0-17.9); LYMPHOCYTES # (AUTO) 1.2 X10'3 (1.1-4.8); LYMPHOCYTES % (AUTO) 34.9 % (21-51); MEAN CORPUSCULAR HEMOGLOBIN 28.7 PG (27.0-31.0); MEAN CORPUSCULAR HGB CONC 33.9 g/dL (33.0-36.5); MEAN CORPUSCULAR VOLUME 84.7 FL (78-98); MEAN PLATELET VOLUME 8.5 FL (7.4-10.4); MONOCYTES # (AUTO) 0.4 X10'3 (0-0.9); MONOCYTES % (AUTO) 11.1 % (2-12); NEUTROPHILS # (AUTO) 1.9 X10'3 (1.8-7.7); NEUTROPHILS % (AUTO) 52.7 % (42-75); PLATELET COUNT 146 X10'3 (140-440); RED BLOOD COUNT 3.44 X10'6 (4.70-6.10); RED CELL DISTRIBUTION WIDTH 14.1 % (11.5-14.5); WHITE BLOOD COUNT 3.5 X10'3 (4.5-11.0)
[2020-06-09 06:12] LABS: ALBUMIN 2.8 G/DL (3.4-5.0); ANION GAP 9 (8-16); BLOOD UREA NITROGEN 38 MG/DL (7-18); BUN/CREATININE RATIO 26.6 (5.4-32.0); CALCIUM 8.4 MG/DL (8.5-10.1); CHLORIDE 107 MMOL/L (99-107); CREATININE 1.43 MG/DL (0.60-1.10); GLUCOSE 89 MG/DL (70-104); POTASSIUM 4.9 MMOL/L (3.5-5.1); SODIUM 139 MMOL/L (135-145); TOTAL CARBON DIOXIDE 23.3 MMOL/L (24-32); eGFR 47 ML/MIN
--- NOTE | 2020-06-09 06:27 | NUR ---
Patient in room MED 312. I have received report from cyril and had the opportunity to ask questions and assume patient care.
[2020-06-09 07:25] VITALS: BP 136/64
[2020-06-09] MEDS: docusate sod 100mg capsule PO SCH (07:52)
[2020-06-09] MEDS: sertraline 50mg tablet PO SCH (07:52)
[2020-06-09] MEDS: levoTHYROXINE 125mcg tablet PO SCH (07:53)
[2020-06-09] MEDS: atorvastatin 20mg tablet PO SCH (07:53)
[2020-06-09] MEDS: aspirin 81mg tablet.DR PO SCH (07:53)
[2020-06-09] MEDS: carVEDilol 12.5mg tablet PO SCH (07:53)
[2020-06-09] MEDS: K and/or MAG REPLACEMENT MC SCH (07:55)
[2020-06-09 11:35] VITALS: BP 114/55
--- NOTE | 2020-06-09 14:15 | NUR ---
pt will be discharged to [facility] . report was called to Luz . given copy of discharge instructions . pt is scheduled for 1430 hand picker . int removed without complications. waiting transport
--- NOTE | 2020-06-09 15:11 | NUR ---
[facility] here to transport pt to rehab facility , at bedside recommended a different transport to carry patient, charge nurse arranged for a different transportation company and then stated its ok for [facility] [employer] to transport patient. all valuables accounted for . pt vital signs stable and pt in no pain . report has been called and facility awaits patient arrival .
--- NOTE | 2020-06-09 15:34 | NUR ---
PT STATED THAT THE SIGNIFICANT OTHER AT BEDSIDE IS NOT HIS LEGAL AND THAT THEY HAVE BEEN TOGETHER FOR 36 YEARS AND HAVE NO KIDS TOGETHER. PT STATED HE HAS THREE CHILDREN . PT STATED DAVID HAS AND CAN MAKE MEDICAL DECISIONS FOR HIM
[2020-06-09] MEDS ORDERED: VANCOMYCIN LEVEL PO ONE (21:00)
== END 2020-06-09 15:18 | DRG 920 ==
LOC: ER 06:09 → UNDOADMIN 12:53 → ED HOLD 12:53 → MED 3N 18:58
PROVIDERS: ADMIT Internal Medicine; ATTEND Internal Medicine
PROC: 0JC60ZZ Extirpation of Matter from Chest Subcutaneous Tissue and Fascia, Open Approach (ICD-10-PCS; principal; 2020-06-02)
PROC: B3251ZZ Computerized Tomography (CT Scan) of Bilateral Common Carotid Arteries using Low Osmolar Contrast (ICD-10-PCS; 2020-06-03)
PROC: B32G1ZZ Computerized Tomography (CT Scan) of Bilateral Vertebral Arteries using Low Osmolar Contrast (ICD-10-PCS; 2020-06-03)
PROC: B3281ZZ Computerized Tomography (CT Scan) of Bilateral Internal Carotid Arteries using Low Osmolar Contrast (ICD-10-PCS; 2020-06-03)
DX: L76.32 Postprocedural hematoma of skin and subcutaneous tissue following other procedure (principal); I69.354 Hemiplegia and hemiparesis following cerebral infarction affecting left non-dominant side; E03.9 Hypothyroidism, unspecified; F32.9 Major depressive disorder, single episode, unspecified; I48.0 Paroxysmal atrial fibrillation; I65.01 Occlusion and stenosis of right vertebral artery; N18.30 Chronic kidney disease, stage 3 unspecified; M19.90 Unspecified osteoarthritis, unspecified site; M54.2 Cervicalgia; I25.10 Atherosclerotic heart disease of native coronary artery without angina pectoris; M79.601 Pain in right arm; S20.212A Contusion of left front wall of thorax, initial encounter; Z96.653 Presence of artificial knee joint, bilateral; Y83.1 Surgical operation with implant of artificial internal device as the cause of abnormal reaction of the patient, or of later complication, without mention of misadventure at the time of the procedure; I25.2 Old myocardial infarction; Z79.01 Long term (current) use of anticoagulants; Z95.0 Presence of cardiac pacemaker; Z95.1 Presence of aortocoronary bypass graft; Z79.899 Other long term (current) drug therapy; Y92.89 Other specified places as the place of occurrence of the external cause; Z74.01 Bed confinement status
CPT/HCPCS: 33223; 36415; 70450; 70496; 70498; 71275; 80048; 80053; 80061; 82948; 83036; 83735; 84443; 85007; 85025; 85610; 85730; 87081; 93005; 93308; 93931; 93971; 97110; 97162; 97530; 99152; 99153; 99285; A4620; A6258; A6260; G0378; J0690; J1650; J2250; J3010; J3370; J3430; J3490; J7030; J7512; Q9967